=== PATIENT | male | born 1975 | race Caucasian/White ===

== ENCOUNTER 2022-03-28 21:07 | Emergency (ER) | payer MEDICAID, OTHER ==
[~2022-03-28] VITALS: Ht 172.7 cm; Wt 60.0 kg
[2022-03-28 21:15] VITALS: BP 168/80
[2022-03-28] MEDS ORDERED: ALBU6.7H9 INH (22:24)
[2022-03-28] MEDS ORDERED: FLUT9.9S BOTHNSTRLS (22:24)
== END 2022-03-29 02:30 | disposition home or self-care (01) ==
LOC: ER 21:32
DX: Z76.0 Encounter for issue of repeat prescription (principal); J45.909 Unspecified asthma, uncomplicated; R00.0 Tachycardia, unspecified; F15.90 Other stimulant use, unspecified, uncomplicated
CPT/HCPCS: 93005; 99283

== ENCOUNTER 2022-03-29 13:56 | Emergency (ER) | payer OTHER ==
[~2022-03-29] VITALS: Ht 167.6 cm; Wt 78.0 kg
[~2022-03-29 13:56] MED LIST: ALBU6.7H9 INH; FLUT9.9S BOTHNSTRLS
[2022-03-29 14:12] VITALS: BP 137/94
== END 2022-03-29 19:30 | disposition left against medical advice (07) ==
LOC: ER 13:56
DX: Z53.21 Procedure and treatment not carried out due to patient leaving prior to being seen by health care provider (principal)